=== PATIENT | female | born 1940 | race Caucasian/White ===

== ENCOUNTER 2017-02-27 12:05 | Emergency (ER) | payer MEDICARE ==
[~2017-02-27] VITALS: Ht 154.9 cm; Wt 74.8 kg
[~2017-02-27 12:05] MED LIST: ASPI81EC PO; ATOR10 PO; ATOR40TA PO; BUTASPCAF PO; CARI350 PO; CODBUTACEC PO; GLUCHON PO; HYDACE5 PO; LEVSOD125 PO; LEVSOD75 PO; LORA1 PO; LORA2 PO; MELO7.5 PO; METO50 PO; METO50ER PO; MULVITA PO; OXYACE5T PO; PARO20 PO; RANI150 PO; RISE35 PO; TELM40 PO; TELM80 PO; TELM80/12.5 PO; VERA120ER PO; VERA120ERB PO; VERA240ERB PO
[2017-02-27 13:21] LABS: BASOPHILS ABSOLUTE AUTO 0.04 K/mm3 (0.00-0.23); BASOPHILS PERCENT AUTO 1 % (0-2); EOSINOPHILS ABSOLUTE AUTO 0.01 K/mm3 (0.00-0.68); EOSINOPHILS PERCENT AUTO 0 % (0-6); Hematocrit 38.8 % (33.0-51.0); Hemoglobin 12.6 g/dL (11.5-16.0); IMMATURE GRAN ABSOLUTE AUTO 0.01 K/mm3 (0.00-0.10); IMMATURE GRAN PERCENT AUTO 0 % (0-1); LYMPHOCYTES ABSOLUTE AUTO 0.98 K/mm3 (0.84-5.20); LYMPHOCYTES PERCENT AUTO 18 % (21-46); MONOCYTES ABSOLUTE AUTO 0.48 K/mm3 (0.16-1.47); MONOCYTES PERCENT AUTO 9 % (4-13); Mean Corpuscular HGB 30.5 pg (26.0-34.0); Mean Corpuscular HGB Conc 32.5 g/dL (31.5-36.5); Mean Corpuscular Volume 94 fL (80-100); Mean Platelet Volume 9.3 fL (9.1-12.4); NEUTROPHILS ABSOLUTE AUTO 3.86 K/mm3 (1.96-9.15); NEUTROPHILS PERCENT AUTO 72 % (41-73); Platelet Count 238 K/mm3 (150-400); RDW Coefficient Variation 13.7 % (11.7-14.2); RDW Standard Deviation 47.2 fL (35.1-46.3); Red Blood Cell Count 4.13 M/mm3 (3.80-5.20); White Blood Cell Count 5.38 K/mm3 (4.00-11.30)
[2017-02-27 13:47] LABS: Alanine Aminotransfer (ALT/SGP 18 U/L (12-78); Albumin, Blood 3.5 g/dL (3.4-5.0); Albumin/Globulin Ratio 1.1 (0.8-1.8); Alk Phos 99 U/L (50-136); Anion Gap 9 mmol/L (6-16); Aspartate Aminotrans (AST/SGOT 21 U/L (12-37); Bilirubin, Total 0.3 mg/dL (0.1-1.0); Blood Urea Nitrogen 11 mg/dL (8-24); Bun/Creatinine Ratio 11.6 (12.0-20.0); CO2, Blood 26 mmol/L (21-32); Calcium, Blood 7.9 mg/dL (8.5-10.1); Chloride, Blood 97 mmol/L (98-108); Creatinine, Blood 0.95 mg/dL (0.40-1.00); Globulin, Blood 3.1 g/dL (2.2-4.0); Glomerular Filtration Rate >60 (60-); Glucose, Blood 104 mg/dL (70-99); Potassium, Blood 3.5 mmol/L (3.5-5.5); Sodium, Blood 132 mmol/L (136-145); Total Protein, Blood 6.6 g/dL (6.4-8.2); Troponin I <0.015 ng/mL (0.000-0.040)
[2017-02-27] MEDS ORDERED: PARO20 PO (14:22)
[2017-02-27] MEDS ORDERED: PREG50 PO (14:22)
[2017-02-27 15:45] LABS: Influenza A Positive (NEGATIVE); Influenza B Negative (NEGATIVE)
[2017-02-27] MEDS ORDERED: Tamiflu75 MG PO (15:59)
== END 2017-02-27 16:09 | disposition home or self-care (01) ==
LOC: ER 12:05
PROVIDERS: Internal Medicine; Physician Assistant
DX: J10.1 Influenza due to other identified influenza virus with other respiratory manifestations (principal); I10 Essential (primary) hypertension; J44.9 Chronic obstructive pulmonary disease, unspecified; R41.0 Disorientation, unspecified; R47.01 Aphasia; Z88.1 Allergy status to other antibiotic agents; Z88.0 Allergy status to penicillin; Z88.8 Allergy status to other drugs, medicaments and biological substances; Z79.899 Other long term (current) drug therapy; Z87.891 Personal history of nicotine dependence
CPT/HCPCS: 36415; 71020; 80053; 81000; 84484; 85025; 87804; 93005; 93010; 96360; 99284; J7030

== ENCOUNTER → 2018-06-01 | Outpatient (CLI) | payer MEDICARE ==
[~2018-06-01] MED LIST changes: +PREG50 PO; +Tamiflu75 MG PO
== END | disposition home or self-care (01) ==
LOC: PLD 09:03 → LAB SHORT 09:03
DX: I87.8 Other specified disorders of veins (principal)
CPT/HCPCS: 88305

== ENCOUNTER → 2018-06-30 | Outpatient (CLI) | payer MEDICARE | LOC: PLD 08:56 → LAB SHORT 08:56 | DX: D48.5 Neoplasm of uncertain behavior of skin (principal) | CPT/HCPCS: 88304 ==

== ENCOUNTER 2018-09-08 07:09 | Day surgery (SDC) | payer MEDICARE ==
[~2018-09-08] VITALS: Ht 158 cm; Wt 72.1 kg
[~2018-09-08 07:09] MED LIST changes: +L-Lysine500 M1 PO; +Zantac150 MG PO
--- NOTE | 2018-09-08 08:27 | NUR ---
Ambulatory in Day Surgery History, Chart, Medications and Allergies reviewed before start of procedure. Lungs clear T/O to Auscultation. Patient confirms NPO status and agrees with scheduled surgery. Pre-Op teaching done. Pt verbalizes understanding.
--- NOTE | 2018-09-08 09:22 | NUR ---
09/08/18 0922 Tavares Ruiz NO ANTIBIOTICS ORDERED AND THIS WAS CONFIRMED WITH DR BAUTISTA.
--- NOTE | 2018-09-08 11:02 | NUR ---
PT CO HEADACHE WHICH IS PRODUCING NAUSEA. STATES SHE SUFFERS FROM MIGRAINES WITH NAUSEA AND THIS FEELS THE SAME. WILL CONTINUE CLOSE MONITORING WHILE IN STEP DOWN UNIT. PT AWAKE, CONVERSING WITH STAFF.
--- NOTE | 2018-09-08 11:23 | NUR ---
PT SIPPING ON WATER, EATING CRACKERS AT THIS TIME. RATES PAIN IN BACK AT INCISION SITE 09/07. WILL MEDICATE WITH 2 NORCO PER PATIENT REQUEST. STATES SHE TAKES FIORNAL FOR MIGRAINES - INSTRUCTED PT NOT TO TAKER HER FIORNAL AFTER NORCO RELATED TO POSSIBLE INTERACTION/OVERSEDATION. PT AGREES TO THIS.
--- NOTE | 2018-09-08 12:02 | NUR ---
SUMMARY: PT STATES PAIN LEVEL BETTER AFTER MEDICATION ADMINISTERED. ABLE TO DRESS SELF WITH ASSIST, AMBULATE TO BATHROOM USING CANE AND SBA WITHOUT DIFFICULTY. REVIEWED DISCHARGE INSTRUCTIONS WITH PATIENT AND SO, BOTH OF WHOM VERBALIZE UNDERSTANDING OF ALL INSTRUCTIONS GIVEN. PT DENIED FURTHER NAUSEA - ABLE TO TOLERATE CRACKERS AND PAIN PILLS WITHOUT DIFFICULTY.
--- NOTE | 2018-09-08 12:05 | NUR ---
IV DC TIP INTACT PRIOR TO DC. DC HOME AT 1200 VIA WC WITH SO TO DRIVE HER.
== END 2018-09-08 22:55 | disposition home or self-care (01) ==
LOC: ORSCMMR 07:09 → ORD 09:00 → ORSCMMR 09:00
PROVIDERS: Surgery
PROC: 0JB70ZZ Excision of Back Subcutaneous Tissue and Fascia, Open Approach (ICD-10-PCS; principal; 2018-09-08 09:00)
DX: D17.1 Benign lipomatous neoplasm of skin and subcutaneous tissue of trunk (principal); I10 Essential (primary) hypertension; Z87.891 Personal history of nicotine dependence; Z79.899 Other long term (current) drug therapy
CPT/HCPCS: 88304; A9270-GY; J0330; J2250; J2704; J3010; J7120

== ENCOUNTER 2020-01-08 09:41 | Day surgery (SDC) | payer MEDICARE ==
[~2020-01-08] VITALS: Ht 157.5 cm; Wt 68.9 kg
[~2020-01-08 09:41] MED LIST changes: +BUTALBITAL COM1 EACH; +CYAN1000I
--- NOTE | 2020-01-08 10:25 | NUR ---
01/08/20 Raymundo5 Yasmin Langford 1 TRY RIGHT HAND BLEW
== END 2020-01-08 23:59 | disposition home or self-care (01) ==
LOC: ORSCSDS 09:41
PROVIDERS: Student in an Organized Health Care Education/Training Program
PROC: 0DB48ZX Excision of Esophagogastric Junction, Via Natural or Artificial Opening Endoscopic, Diagnostic (ICD-10-PCS; principal; 2020-01-08 11:15)
PROC: 0DB68ZX Excision of Stomach, Via Natural or Artificial Opening Endoscopic, Diagnostic (ICD-10-PCS; principal; 2020-01-08 11:15)
DX: D51.0 Vitamin B12 deficiency anemia due to intrinsic factor deficiency (principal); K31.7 Polyp of stomach and duodenum; K29.70 Gastritis, unspecified, without bleeding; E03.9 Hypothyroidism, unspecified; I10 Essential (primary) hypertension; F32.9 Major depressive disorder, single episode, unspecified; K21.9 Gastro-esophageal reflux disease without esophagitis; E78.5 Hyperlipidemia, unspecified; J44.9 Chronic obstructive pulmonary disease, unspecified; Z87.891 Personal history of nicotine dependence; Z79.899 Other long term (current) drug therapy
CPT/HCPCS: J2704; J7120

== ENCOUNTER 2020-06-03 09:35 | Observation (INO) | payer MEDICARE ==
[~2020-06-03] VITALS: Ht 154.9 cm; Wt 66.8 kg
[~2020-06-03 09:35] MED LIST changes: -BUTALBITAL COM1 EACH; -CYAN1000I; -L-Lysine500 M1 PO; -PREG50 PO; -TELM80 PO
[2020-06-03 12:38] LABS: BASOPHILS ABSOLUTE AUTO 0.08 K/mm3 (0.00-0.23); BASOPHILS PERCENT AUTO 1 % (0-2); EOSINOPHILS ABSOLUTE AUTO 0.34 K/mm3 (0.00-0.68); EOSINOPHILS PERCENT AUTO 4 % (0-6); Hematocrit 38.5 % (33.0-51.0); Hemoglobin 12.7 g/dL (11.5-16.0); IMMATURE GRAN ABSOLUTE AUTO 0.03 K/mm3 (0.00-0.10); IMMATURE GRAN PERCENT AUTO 0 % (0-1); LYMPHOCYTES ABSOLUTE AUTO 1.81 K/mm3 (0.84-5.20); LYMPHOCYTES PERCENT AUTO 19 % (21-46); MONOCYTES ABSOLUTE AUTO 0.96 K/mm3 (0.16-1.47); MONOCYTES PERCENT AUTO 10 % (4-13); Mean Corpuscular HGB 30.5 pg (26.0-34.0); Mean Corpuscular Volume 92 fL (80-100); Mean Platelet Volume 9.3 fL (9.1-12.4); NEUTROPHILS ABSOLUTE AUTO 6.29 K/mm3 (1.96-9.15); NEUTROPHILS PERCENT AUTO 66 % (41-73); Platelet Count 298 K/mm3 (150-400); RDW Standard Deviation 43.8 fL (35.1-46.3); Red Blood Cell Count 4.17 M/mm3 (3.80-5.20); White Blood Cell Count 9.51 K/mm3 (4.00-11.30)
[2020-06-03 12:59] LABS: Alanine Aminotransfer (ALT/SGP 23 U/L (12-78); Albumin, Blood 3.1 g/dL (3.4-5.0); Albumin/Globulin Ratio 0.8 (0.8-1.8); Alk Phos 118 U/L (50-136); Anion Gap 4 mmol/L (6-16); Aspartate Aminotrans (AST/SGOT 20 U/L (12-37); Bilirubin, Total 0.4 mg/dL (0.1-1.0); Blood Urea Nitrogen 7 mg/dL (8-24); Bun/Creatinine Ratio 10.8 (12.0-20.0); CO2, Blood 28 mmol/L (21-32); Calcium, Blood 8.6 mg/dL (8.5-10.1); Chloride, Blood 99 mmol/L (98-108); Creatinine, Blood 0.65 mg/dL (0.40-1.00); Globulin, Blood 3.8 g/dL (2.2-4.0); Glomerular Filtration Rate >60 (60-); Glucose, Blood 111 mg/dL (70-99); Potassium, Blood 3.8 mmol/L (3.5-5.5); Sodium, Blood 131 mmol/L (136-145); Total Protein, Blood 6.9 g/dL (6.4-8.2)
[2020-06-03] MEDS ORDERED: ASCOMP WITH CO1 EACH PO (13:28)
[2020-06-03] MEDS ORDERED: LORA2 PO (13:29)
[2020-06-03] MEDS ORDERED: ATOR40TA PO (13:30)
[2020-06-03] MEDS ORDERED: PREG50 PO (13:30)
[2020-06-03] MEDS ORDERED: Cimetidine400 MG PO (13:33)
[2020-06-03] MEDS ORDERED: CHLORZOXAZONE750 MG PO (13:33)
[2020-06-03] MEDS ORDERED: EUTHYROX88 MCG PO (13:34)
[2020-06-03] MEDS ORDERED: PARO20 PO (13:35)
[2020-06-03] MEDS ORDERED: METO50ER PO (13:35)
[2020-06-03] MEDS ORDERED: TELMISARTAN-HC1 EAC4 PO (13:35)
[2020-06-03] MEDS ORDERED: ESTRADIOL42.5 GM VAG (13:38)
[2020-06-03] MEDS ORDERED: CYAN1000I IM (14:52)
[2020-06-03] MEDS ORDERED: L-Lysine500 M1 PO (14:52)
[2020-06-03] MEDS ORDERED: PROM25 PO (14:53)
--- NOTE | 2020-06-03 17:51 | NUR ---
SHIFT SUMMARY/ADMIT SUMMARY PATIENT ADMITTED TO UNIT FROM ER ABOUT 1700. ALERT AND ORIENTED. RIGHT FEMUR FRACTURE FROM A GROUND LEVEL FALL AT HOME. PATIENT REPORTS SEVERE PAIN BUT SHOWS GOOD MOVEMENT AND WARMTH TO BILAT LE. REPORTS BASELINE NUMBNESS TO BOTTOMS OF FEET AND LEFT LEG DUE TO NEUROPATHY. MEDICATED PATIENT FOR MIGRAINE AND HIP PAIN PER EMAR. PATIENT NON-SURGICAL PER ORTHO. TOLERATING REGULAR DIET AND LIQUIDS. PRADO IN PLACE AND PATENT. 2 MM HEAD LACERATION TO BACK OF SKULL FORM FALL. PHOTOS DOCUMENTED IN CHART.
--- NOTE | 2020-06-04 03:58 | NUR ---
SHIFT SUMMARY: NONSURGICAL RIGHT HIP FX PATIENT IS ALERT AND ORIENTED X4 WHILE AWAKE. VS ARE WNL AND IS ON RA. PAIN IS MANAGED WITH PO NARCOTICS. RIGHT HIP IS NON-WEIGHT BEARING BUT IS ABLE TO STAND AND PIVIOT ON LEFT LEG WITH FWW AND GAIT BELT. SHE IS TOLERATING PO INTAKE. PRADO IS IN PLACE AND PATENT. YELLOW URINE IS FLOWING INTO PRADO BAG. 2MM HEAD LACERATION TO BACK OF SKULL FROM FALL. NO BLEEDING AT THIS TIME. RIGHT HIP IS SWOLLEN AND SOME BRUISING. CALLS APPROPRIATELY. CALL LIGHT WITHIN REACH. THE PLAN IS TO POSSIBLY DISCHARGE HOME LATER TODAY.
--- NOTE | 2020-06-04 18:18 | NUR ---
SHIFT SUMMARY PT ALERT AND ORIENTED THROUGHOUT SHIFT. 1 PERSON SBA WITH WALKER TO TRANSFER TO CHAIR. EVE LOGAN'Summer THIS SHIFT. VOIDING WELL. MEDICATE FOR PAIN PER EMAR. TOLERATING REGULAR DIET AND LIQUIDS. NON-SURGICAL FX OF RIGHT HIP. PLAN TO DISCHARGE HOME WITH HOME HEALTH PT/OT. PT RESTING IN BED AT THIS TIME.
--- NOTE | 2020-06-05 03:23 | NUR ---
SHIFT SUMMARY: RIGHT HIP FX - NONSURGICAL PATIENT IS ALERT AND ORIENTED X4 WHILE AWAKE. PATIENT HAS BEEN ASLEEP MAJORITY OF THE SHIFT BUT IS EASILY AROUSABLE. VS ARE WNL AND IS ON RA. PAIN IS MANAGED WITH 1 PERCOCET. SHE IS A SBA WITH FWW AND GAIT BELT TO BEDSIDE COMMODE. SHE HAS FULL SENSATIONS IN ALL EXTREMITIES. SHE IS ABLE TO WIGGLE FINGERS AND TOES. SHE IS VOIDING AND TOLERATING HER PO INTAKE. CALL LIGHT IS WITHIN REACH. CALLS APPROPRIATELY. LACERATION ON THE BACK OF HER HEAD IS DRY AND NO DRAINAGE. THE PLAN IS FOR HER TO BE DISCHARGED HOME TODAY WITH HOME HEALTH AND PT VISITS.
--- NOTE | 2020-06-05 07:10 | NUR ---
pt req toast and her migraine medication stated she woke up and her neck hurts along with cont h/a no toast up here put in a order
--- NOTE | 2020-06-05 08:40 | NUR ---
dr santa by to see pt ok to discharge home today after physical therapy with h/h
[2020-06-05] MEDS ORDERED: Acetaminophen325 M1 PO (10:04)
[2020-06-05] MEDS ORDERED: Percocet 5-3251 EACH PO (10:04)
--- NOTE | 2020-06-05 10:53 | NUR ---
ot working with pt she had me look at her head lac pt has [address] still in [address] no current bleeding noted
--- NOTE | 2020-06-05 11:29 | NUR ---
oob to bathroom with fww had a bm back to recliner physical therapy by to see pt
--- NOTE | 2020-06-05 12:15 | NUR ---
discharge instructions reviewed with pt verbalized rx awaiting ride po percocet given req her migraine med pharmacy called awaiting ride
== END 2020-06-05 13:00 | disposition home or self-care (01) ==
LOC: ER 09:35 → SURS 09:36 → ER 13:58 → SURS 13:58
PROVIDERS: Physician Assistant; ADMIT Internal Medicine
DX: M97.01XA Periprosthetic fracture around internal prosthetic right hip joint, initial encounter (principal); S00.93XA Contusion of unspecified part of head, initial encounter; I10 Essential (primary) hypertension; J44.9 Chronic obstructive pulmonary disease, unspecified; E78.5 Hyperlipidemia, unspecified; E03.9 Hypothyroidism, unspecified; F41.9 Anxiety disorder, unspecified; G43.909 Migraine, unspecified, not intractable, without status migrainosus; W01.190A Fall on same level from slipping, tripping and stumbling with subsequent striking against furniture, initial encounter; Z96.643 Presence of artificial hip joint, bilateral; Z87.891 Personal history of nicotine dependence; Z66 Do not resuscitate
CPT/HCPCS: 36415; 51702; 70450; 73502; 80053; 85025; 94760; 96372; 96374-59; 97110; 97110-CO; 97116; 97162; 97165; 97530; 97530-CO; 97535; 97535-CO; 99285-25; A9270; G0378; J1650; J2405; J3010

== ENCOUNTER → 2020-07-16 | Outpatient (CLI) | payer MEDICARE ==
[~2020-07-16] MED LIST changes: +ASCOMP WITH CO1 EACH PO; +Acetaminophen325 M1 PO; +CHLORZOXAZONE750 MG PO; +CYAN1000I IM; +Cimetidine400 MG PO; +ESTRADIOL42.5 GM VAG; +EUTHYROX88 MCG PO; +L-Lysine500 M1 PO; +PREG50 PO; +PROM25 PO; +Percocet 5-3251 EACH PO; +TELMISARTAN-HC1 EAC4 PO
[2020-07-16 16:06] LABS: Source, Urine Clean Catch
[2020-07-16 19:34] LABS: Appearance, Urine Clear (Clear); Bilirubin, Urine Neg (Neg); Blood, Urine 2+ (Neg); Color, Urine Yellow (P-Yellow); Glucose Qualitative, Urine Neg (Neg); Ketones, Urine 1+ (Neg); Leukocyte Esterase, Urine 1+ (Neg); Nitrite, Urine Pos (Neg); Protein, Urine 1+ (Neg); Urobilinogen, Urine NORM (Normal)
[2020-07-16 20:04] LABS: Bacteria Many /hpf; Red Blood Cells, Urine 0-2 /hpf (0-2); Squamous Epithelial Cells Mod /hpf (Few); White Blood Cells, Urine 0-2 /hpf (0-5)
== END | disposition home or self-care (01) ==
LOC: LAB 16:03 → LAB SHORT 16:03
PROVIDERS: Obstetrics & Gynecology
DX: R30.9 Painful micturition, unspecified (principal)
CPT/HCPCS: 81001; 87086

== ENCOUNTER 2021-08-06 15:42 | Emergency (ER) | payer MEDICARE ==
[~2021-08-06] VITALS: Ht 152.4 cm; Wt 68.0 kg
[2021-08-06 17:04] LABS: Bun/Creatinine Ratio 15.7 (12.0-20.0); Calcium, Blood 8.5 mg/dL (8.5-10.1); Creatinine, Blood 0.76 mg/dL (0.40-1.00); Potassium, Blood 3.8 mmol/L (3.5-5.5)
== END 2021-08-06 18:59 | disposition home or self-care (01) ==
LOC: ER 15:42
PROVIDERS: Student in an Organized Health Care Education/Training Program
DX: R51.9 Headache, unspecified (principal); R42 Dizziness and giddiness; R55 Syncope and collapse; I10 Essential (primary) hypertension; E78.5 Hyperlipidemia, unspecified; J44.9 Chronic obstructive pulmonary disease, unspecified; E03.9 Hypothyroidism, unspecified; Z88.1 Allergy status to other antibiotic agents; Z88.0 Allergy status to penicillin; Z88.8 Allergy status to other drugs, medicaments and biological substances; Z79.899 Other long term (current) drug therapy; Z91.81 History of falling
CPT/HCPCS: 70450; 80048; 93005; 93010; 96365; 96366; 96375; 99285-25; J0780; J1200; J3475; J7030

== ENCOUNTER 2022-01-02 06:46 | Day surgery (SDC) | payer MEDICARE ==
--- NOTE | 2022-01-02 08:55 | NUR ---
DR DUARTE HERE TO DISCUSS PROCEDURE WITH PATIENT.
--- NOTE | 2022-01-02 10:30 | NUR ---
DR DUARTE IN TO DISCUSS PROCEDURE RESULTS WITH PATIENT AND .
[2022-01-02] MEDS ORDERED: Aspir 8181 MG PO (10:35)
--- NOTE | 2022-01-02 12:39 | NUR ---
TR BAND HAS BEEN FULLY DEFLATED AND SITE REMAINS STABLE
--- NOTE | 2022-01-02 13:15 | NUR ---
PATIENT AND VERBALIZED UNDERSTANDING OF DISCHARGE INSTRUCTIONS AND PRECAUTIONS. DR DUARTE CANCELED 81MG ASA ORDER PATIENT IS TAKING 325 MG ASA IN A COMBINATION DRUG. PATIENT HAS BEEN UP TO THE RESROOM WITH STANDBY ASSIST X 3 DURING RECOVERY. IV SITE DCED WITH CATHETER INTACT. TR BAND REMOVED AND CLOTH DOT DRESSING PLACED. WRIST BOARD IN PLACE. SITE STABLE . NO HEMATOMA, NO BLEEDING. NO FURTHER QUESTIONS. PATIENT TRANSFERRED TO WAITING CAR VIA WHEEL CHAIR. DRIVING.
== END 2022-01-02 13:55 | disposition home or self-care (01) ==
LOC: MHTC 06:46
DX: R07.9 Chest pain, unspecified (principal); I25.10 Atherosclerotic heart disease of native coronary artery without angina pectoris; R06.09 Other forms of dyspnea; R00.2 Palpitations; R94.39 Abnormal result of other cardiovascular function study; I10 Essential (primary) hypertension; E78.5 Hyperlipidemia, unspecified; K21.9 Gastro-esophageal reflux disease without esophagitis; E03.9 Hypothyroidism, unspecified; J44.9 Chronic obstructive pulmonary disease, unspecified; Z87.891 Personal history of nicotine dependence; Z88.1 Allergy status to other antibiotic agents; Z88.0 Allergy status to penicillin; Z82.49 Family history of ischemic heart disease and other diseases of the circulatory system
CPT/HCPCS: 76937; 93454; 99152; A9270; C1769; C1887; C1894; J1644; J2250; J3010; J7030; J7040; Q9967

== ENCOUNTER → 2022-07-23 | Outpatient (CLI) | payer MEDICARE ==
[~2022-07-23] MED LIST changes: +Aspir 8181 MG PO
[2022-07-23 13:30] LABS: Source, Urine Clean Catch
[2022-07-23 18:09] LABS: Bacteria Rare /hpf; Squamous Epithelial Cells Rare /hpf (Few); White Blood Cells, Urine 0-2 /hpf (0-5)
== END | disposition home or self-care (01) ==
LOC: LAB SHORT 10:55 → LAB 10:55
PROVIDERS: Internal Medicine
DX: N39.0 Urinary tract infection, site not specified (principal)
CPT/HCPCS: 81015

== ENCOUNTER 2023-08-17 13:06 | Observation (INO) | payer MEDICARE ==
[~2023-08-17] VITALS: Ht 154.9 cm; Wt 57.3 kg
[2023-08-17 13:32] LABS: BASOPHILS ABSOLUTE AUTO 0.08 K/mm3 (0.00-0.23); BASOPHILS PERCENT AUTO 1 % (0-2); EOSINOPHILS ABSOLUTE AUTO 0.09 K/mm3 (0.00-0.68); EOSINOPHILS PERCENT AUTO 1 % (0-6); Hematocrit 38.1 % (33.0-51.0); Hemoglobin 12.9 g/dL (11.5-16.0); IMMATURE GRAN ABSOLUTE AUTO 0.02 K/mm3 (0.00-0.10); IMMATURE GRAN PERCENT AUTO 0 % (0-1); LYMPHOCYTES ABSOLUTE AUTO 1.49 K/mm3 (0.84-5.20); LYMPHOCYTES PERCENT AUTO 19 % (21-46); MONOCYTES PERCENT AUTO 9 % (4-13); Mean Corpuscular HGB 30.3 pg (26.0-34.0); Mean Corpuscular HGB Conc 33.9 g/dL (31.5-36.5); Mean Corpuscular Volume 89 fL (80-100); Mean Platelet Volume 8.5 fL (9.1-12.4); NEUTROPHILS ABSOLUTE AUTO 5.48 K/mm3 (1.96-9.15); NEUTROPHILS PERCENT AUTO 70 % (41-73); Platelet Count 282 K/mm3 (150-400); RDW Coefficient Variation 13.1 % (11.7-14.2); Red Blood Cell Count 4.26 M/mm3 (3.80-5.20); White Blood Cell Count 7.86 K/mm3 (4.00-11.30)
[2023-08-17 13:51] LABS: Albumin, Blood 3.7 g/dL (3.4-5.0); Albumin/Globulin Ratio 1.2 (0.8-1.8); Bilirubin, Total 0.5 mg/dL (0.1-1.0); Calcium, Blood 8.7 mg/dL (8.5-10.1); Creatinine, Blood 0.63 mg/dL (0.40-1.00); Globulin, Blood 3.1 g/dL (2.2-4.0); Potassium, Blood 3.5 mmol/L (3.5-5.5); Total Protein, Blood 6.8 g/dL (6.4-8.2)
[2023-08-17] MEDS ORDERED: Acetaminophen 500 MG Tab PO ONE (14:00)
[2023-08-17] MEDS ORDERED: OxyCODONE HCL 5 MG TAB PO ONE (14:10)
[2023-08-17] MEDS ORDERED: Lidocaine/Tetracaine/Epinephr 4 ML SOLN TOP ONE ×2 (14:20→15:20)
[2023-08-17] MEDS ORDERED: LEVSOD112 PO (14:39)
[2023-08-17] MEDS ORDERED: PARO10 PO (14:41)
[2023-08-17] MEDS ORDERED: CLOP75 PO (14:42)
[2023-08-17] MEDS ORDERED: PRAM.125 PO (14:43)
[2023-08-17] MEDS ORDERED: NITR.4SL SL (14:43)
[2023-08-17] MEDS ORDERED: levETIRAcetam 500 MG in NS 100 ML IV ONE (18:20)
[2023-08-17] MEDS ORDERED: FentaNYL Citrate 50 MCG/ML 2 ML Injection IV ONE (19:00)
[2023-08-17] MEDS ORDERED: Ondansetron HCl 2 MG / ML 2ML Vial IV ONE (19:00)
[2023-08-17] MEDS ORDERED: Acetaminophen 325 MG TABLET PO PRN (20:25)
[2023-08-17] MEDS ORDERED: NS 1,000 ML IV SCH (20:25)
[2023-08-17] MEDS ORDERED: Ondansetron HCl 2 MG / ML 2ML Vial IV PRN (20:25)
[2023-08-17 21:00] VITALS: BP 152/84
[2023-08-17] MEDS ORDERED: Pramipexole DI-HCL 0.125 MG Tab PO SCH (21:00)
[2023-08-17] MEDS ORDERED: Pregabalin 50 MG Capsule PO SCH (21:00)
[2023-08-17] MEDS ORDERED: Famotidine 20 MG Tab PO SCH (21:00)
[2023-08-17 21:45] VITALS: BP 164/116
[2023-08-17] MEDS ORDERED: Lidocaine 5% Ointment 35 gm TOP PRN (21:50)
[2023-08-17] MEDS ORDERED: OxyCODONE 5 mg/Acetamin 325 mg TABLET PO PRN (21:50)
[2023-08-17] MEDS ORDERED: Sennosides 8.6 MG Tab PO SCH (21:55)
[2023-08-17] MEDS ORDERED: Metoprolol Succinate 50 MG TABCR PO SCH (22:06)
[2023-08-17] MEDS ORDERED: Losartan/HCTZ 50-12.5 TAB PO SCH (22:15)
[2023-08-17 23:38] VITALS: BP 152/82
[2023-08-18] MEDS ORDERED: Acetamin/Butalbital/Caffeine Tab PO ONE (02:30)
[2023-08-18] MEDS ORDERED: Acetamin/Butalbital/Caffeine Tab PO PRN (02:30)
[2023-08-18 03:08] VITALS: BP 113/72
[2023-08-18 04:57] LABS: Hematocrit 36.7 % (33.0-51.0); Hemoglobin 12.3 g/dL (11.5-16.0); Mean Corpuscular HGB 30.1 pg (26.0-34.0); Mean Corpuscular HGB Conc 33.5 g/dL (31.5-36.5); Mean Corpuscular Volume 90 fL (80-100); Mean Platelet Volume 8.9 fL (9.1-12.4); Platelet Count 273 K/mm3 (150-400); RDW Coefficient Variation 13.2 % (11.7-14.2); RDW Standard Deviation 43.5 fL (35.1-46.3); Red Blood Cell Count 4.08 M/mm3 (3.80-5.20); White Blood Cell Count 5.72 K/mm3 (4.00-11.30)
[2023-08-18 05:33] LABS: Calcium, Blood 8.9 mg/dL (8.5-10.1); Creatinine, Blood 0.5 mg/dL (0.40-1.00); Magnesium, Blood 1.9 mg/dL (1.6-2.4); Potassium, Blood 3.5 mmol/L (3.5-5.5)
[2023-08-18] MEDS ORDERED: Levothyroxine Sodium 0.112 MG Tab PO SCH (06:00)
--- NOTE | 2023-08-18 06:07 | NUR ---
2129 Pt arrived on unit from ED via [facility] with RN in attendance. Ambulated from [facility] in hallway to bed in room 4 with 1 person assist due to unsteadiness. Pt reports able to ambulate ad kacey at baseline, endores she is significantly altered. Fall risk education provided and pt able to verbalize understanding. Oriented to room and unit per unit standards. Pt reports high level of headache pain 8-10/10, though hard to distinguish between normal migraine pain and pain related to fall. Monitor Neuro status for changes. BP slightly elevated, call to MD to restarted home meds for BP. VSS stable throughout night, BP better. Pt has required O2 2lpm via NC to maintain SpO2 >92% while asleep tonight. Pt reports she does not wear O2 at home. Call to MD to request migraine medication, New orders recieved and pt informed. Repeat Head CT obtained this AM, awaiting results. Please see full assessment for additional details. No further complaints or concerns at this time, will continue to monitor.
[2023-08-18 07:27] VITALS: BP 115/87
[2023-08-18] MEDS ORDERED: Atorvastatin 40 MG Tab PO SCH (09:00)
[2023-08-18] MEDS ORDERED: LevETIRAcetam 500 MG Tab PO SCH (09:00)
[2023-08-18] MEDS ORDERED: PARoxetine HCl 10 MG Tab PO SCH (09:00)
[2023-08-18 12:33] VITALS: BP 131/72
[2023-08-18] MEDS ORDERED: LEVE500 PO (14:07)
[2023-08-18] MEDS ORDERED: Percocet 5-3251 EACH PO (14:08)
[2023-08-18] MEDS ORDERED: SENNA LAXATIVE8.6 MG PO (14:09)
--- NOTE | 2023-08-18 15:52 | NUR ---
DISCHARGE HOME PT A&O X4. VSS. SPO2 > 92% ON RA. MONITOR SHOWING NSR. PT W/ BRUISING TO R LIP/CHEEK/FACE W/ SWELLING WELL. PT W/ CONTINUED HEADACHE & "SHARP" FACIAL PAIN WELL. PT REPORTS CHRONIC MIGRAINES PRIOR TO FALL AT HOME. PT MEDICATED FOR PAIN PER EMAR/PT REQUEST W/ LITTLE TO NO IMPROVEMENT IN PAIN. PT STEADY ON FEET THIS AM, THEN W/ CONTINUED INCREASE IN STABILITY IN STRENGTH W/ PT ABLE TO AMBULATE INTO BATHROOM W/ SBA. THERAPY TO BEDSIDE TO EVALUATE PT, RECOMMENDING PT DISCHARGE HOME W/ HOME HEALTH. MD RENTERIA & MD BERNSTEIN W/ IVY FOR PT DISCHARGE. DISCHARGE INSTRUCTIONS REVIEWED W/ PT & SENT HOME W/ PT. PIV REMOVED. PT TAKEN OUT IN WHEELCHAIR W/ BELONGINGS @ APPROX 1450.
[2023-08-18] MEDS ORDERED: Metoprolol Succinate 50 MG TABCR PO SCH (18:00)
[2023-08-18] MEDS ORDERED: Pramipexole DI-HCL 0.125 MG Tab PO SCH (21:00)
[2023-08-18] MEDS ORDERED: Losartan Potassium 50 MG Tab PO SCH (21:00)
== END 2023-08-18 15:03 | disposition home or self-care (01) ==
LOC: ER 13:06 → PCU 13:07 → ER 13:07 → PCU 13:07
PROVIDERS: Nurse Practitioner Acute Care; Physician Assistant; ADMIT Student in an Organized Health Care Education/Training Program
DX: S06.6X9A Traumatic subarachnoid hemorrhage with loss of consciousness of unspecified duration, initial encounter (principal); W19.XXXA Unspecified fall, initial encounter; J44.9 Chronic obstructive pulmonary disease, unspecified; I10 Essential (primary) hypertension; E78.5 Hyperlipidemia, unspecified; E03.9 Hypothyroidism, unspecified; E87.1 Hypo-osmolality and hyponatremia; I25.10 Atherosclerotic heart disease of native coronary artery without angina pectoris; F41.9 Anxiety disorder, unspecified; Z95.5 Presence of coronary angioplasty implant and graft; Z88.0 Allergy status to penicillin; Z88.1 Allergy status to other antibiotic agents; Z79.01 Long term (current) use of anticoagulants; Z88.8 Allergy status to other drugs, medicaments and biological substances; Z79.890 Hormone replacement therapy; Z79.899 Other long term (current) drug therapy
CPT/HCPCS: 12011; 36415; 70450; 70486; 71045; 80048; 80053; 83735; 83930; 83935; 84300; 84484; 85025; 85027; 93005; 93010; 93246; 94762; 96374-59; 96375-59; 97110; 97162; 99285-25; A9270; G0378; J1953; J2405; J3010; J7030

== ENCOUNTER 2023-09-20 12:56 | Observation (INO) | payer MEDICARE ==
[2023-09-20] VITALS (14 sets, daily range): BP systolic 93–132; BP diastolic 52–90
[~2023-09-20] VITALS: Ht 154.9 cm; Wt 57.7 kg
[~2023-09-20 12:56] MED LIST changes: +CLOP75 PO; +LEVE500 PO; +LEVSOD112 PO; +NITR.4SL SL; +PARO10 PO; +PRAM.125 PO; +SENNA LAXATIVE8.6 MG PO
[2023-09-20] MEDS ORDERED: HYDROmorphone HCl/Pf 1MG SYR IV ONE ×2 (14:30→16:40)
[2023-09-20] MEDS ORDERED: Propofol 10mg/ml 20 ml Vial (Procedural) IV SCH (14:30)
[2023-09-20] MEDS ORDERED: NS 1,000 ML IV SCH (14:30)
[2023-09-20] MEDS ORDERED: Ondansetron HCl 2 MG / ML 2ML Vial ONE (15:13)
[2023-09-20] MEDS ORDERED: Ondansetron HCl 2 MG / ML 2ML Vial IV ONE (15:25)
[2023-09-20] MEDS ORDERED: propofoL 20 ML IV ONE (17:26)
[2023-09-20] MEDS ORDERED: FentaNYL Citrate 50 MCG/ML 2 ML Injection ONE (17:26)
[2023-09-20] MEDS ORDERED: Rocuronium Bromide 10 MG/ML 5ML Injection IV ONE (17:26)
[2023-09-20] MEDS ORDERED: SuccINYLCHOLINE Chloride 20 MG/ML 10ML Injection ONE (17:28)
--- NOTE | 2023-09-20 17:57 | NUR ---
09/20/23 1757 Amparo Child CLOSED REDUCTION, NO ABX ORDERED, NO WOUND CLASS
[2023-09-20] MEDS ORDERED: TraMADol HCl 50 MG Tab PO PRN (18:50)
--- NOTE | 2023-09-20 19:15 | NUR ---
ARRIVAL NOTE PT ARRIVED TO ROOM FROM PACU. TRANSFERED W/ SLIDE SHEET TO BED FROM [facility]. VSS. CONT BIOX ON. PT A/O X4. IMMOBILIZER ON R LEG, CAP REFILL IN R TOES 2 SECS, PT ABLE TO WIGGLE TOES. PT DENIES PAIN AND N/V. INSTRUCTED MS ACCESS DATABASE DEVELOPER LIGHT USE.
[2023-09-20] MEDS ORDERED: Albuterol 2.5 MG/3 ML VIAL INH PRN (20:15)
[2023-09-20 20:24] LABS: BASOPHILS ABSOLUTE AUTO 0.04 K/mm3 (0.00-0.23); BASOPHILS PERCENT AUTO 0 % (0-2); EOSINOPHILS ABSOLUTE AUTO 0.07 K/mm3 (0.00-0.68); EOSINOPHILS PERCENT AUTO 1 % (0-6); Hematocrit 37.7 % (33.0-51.0); Hemoglobin 12.5 g/dL (11.5-16.0); IMMATURE GRAN ABSOLUTE AUTO 0.04 K/mm3 (0.00-0.10); IMMATURE GRAN PERCENT AUTO 0 % (0-1); LYMPHOCYTES ABSOLUTE AUTO 1.11 K/mm3 (0.84-5.20); LYMPHOCYTES PERCENT AUTO 9 % (21-46); MONOCYTES ABSOLUTE AUTO 0.77 K/mm3 (0.16-1.47); MONOCYTES PERCENT AUTO 6 % (4-13); Mean Corpuscular HGB 30.1 pg (26.0-34.0); Mean Corpuscular HGB Conc 33.2 g/dL (31.5-36.5); Mean Corpuscular Volume 91 fL (80-100); Mean Platelet Volume 8.4 fL (9.1-12.4); NEUTROPHILS ABSOLUTE AUTO 10.25 K/mm3 (1.96-9.15); NEUTROPHILS PERCENT AUTO 84 % (41-73); Platelet Count 231 K/mm3 (150-400); RDW Coefficient Variation 13.2 % (11.7-14.2); RDW Standard Deviation 44.3 fL (35.1-46.3); Red Blood Cell Count 4.15 M/mm3 (3.80-5.20); White Blood Cell Count 12.28 K/mm3 (4.00-11.30)
[2023-09-20 20:41] LABS: Albumin, Blood 3.4 g/dL (3.4-5.0); Albumin/Globulin Ratio 1.2 (0.8-1.8); Bilirubin, Total 0.3 mg/dL (0.1-1.0); Bun/Creatinine Ratio 8.2 (12.0-20.0); Calcium, Blood 8.5 mg/dL (8.5-10.1); Creatinine, Blood 0.61 mg/dL (0.40-1.00); Globulin, Blood 2.9 g/dL (2.2-4.0); Potassium, Blood 3.7 mmol/L (3.5-5.5); Total Protein, Blood 6.3 g/dL (6.4-8.2)
[2023-09-20] MEDS ORDERED: LORZONE375 MG PO (21:19)
[2023-09-20] MEDS ORDERED: Ondansetron HCl 2 MG / ML 2ML Vial IV PRN (22:50)
[2023-09-20] MEDS ORDERED: Ipratropium/Albuterol SulF 2.5-0.5MG/3 ML Amp INH PRN (22:50)
[2023-09-20] MEDS ORDERED: FentaNYL Citrate 50 MCG/ML 2 ML Injection IV PRN (22:55)
[2023-09-20] MEDS ORDERED: Furosemide 10 MG/ML 4ML Vial IV SCH (23:00)
[2023-09-20] MEDS ORDERED: Enoxaparin 40 MG/0.4 ML SYR SC SCH (23:00)
[2023-09-20] MEDS ORDERED: Azithromycin 500 MG in NS 250 ML IV SCH (23:00)
[2023-09-20] MEDS ORDERED: Acetamin/Butalbital/Caffeine Tab PO PRN (23:05)
[2023-09-20] MEDS ORDERED: Promethazine HCl 25 MG Tab PO PRN (23:05)
[2023-09-21 02:39] LABS: Source, Urine Clean Catch
[2023-09-21 02:43] LABS: Bilirubin, Urine Neg (Neg); Blood, Urine 2+ (Neg); Glucose Qualitative, Urine Neg (Neg); Ketones, Urine Neg (Neg); Leukocyte Esterase, Urine Neg (Neg); Nitrite, Urine Neg (Neg); Protein, Urine Neg (Neg); Specific Gravity, Urine 1.005 (1.003-1.022); Urobilinogen, Urine NORM (Normal); pH, Urine 6.5 (5.0-8.0)
[2023-09-21 02:55] LABS: Appearance, Urine Clear (Clear); Bacteria Not Seen /hpf; Color, Urine Pale Yellow (P-Yellow); Red Blood Cells, Urine 0-2 /hpf (0-2); Squamous Epithelial Cells Rare /hpf (Few); White Blood Cells, Urine Not Seen /hpf (0-5)
[2023-09-21 03:02] LABS: Influenza A, PCR NEGATIVE (NEGATIVE); Influenza B, PCR NEGATIVE (NEGATIVE); Resp Syncytial Virus, PCR NEGATIVE (NEGATIVE); SARS-Cov-2 (COVID-19) PCR, MMC NEGATIVE (NEGATIVE)
[2023-09-21 04:05] VITALS: BP 107/55
--- NOTE | 2023-09-21 04:42 | NUR ---
SHIFT SUMMARY PT IS A/OX4, HAS NOT AMBULATED SINCE SURGERY. PRADO IN PLACE DRAINING LARGE AMOUNTS OF CLEAR URINE, LASIX GIVEN PER EMAR THIS SHIFT. IMMOBILIZER IN PLACE ON R LEG, TOES WARM TO TOUCH, PEDAL PULSE PALPABLE, PT ABLE TO WIGGLE TOES. O2 SATS >95% ON 2LNC. PT AWAKE ALL NIGHT. TELE ON, NO ACUTE CARDIAC EVENTS REPORTED BY NURSING HOME AIDE THIS SHIFT. VSS. PT MEDICATED FOR PAIN THIS SHIFT W/ TOLERABLE RESULTS. PT USING CALL LIGHT APPROPRIATELY.
[2023-09-21] MEDS ORDERED: Pregabalin 50 MG Capsule PO SCH (05:00)
[2023-09-21] MEDS ORDERED: Levothyroxine Sodium 0.112 MG Tab PO SCH (05:00)
[2023-09-21 05:13] LABS: BASOPHILS ABSOLUTE AUTO 0.06 K/mm3 (0.00-0.23); BASOPHILS PERCENT AUTO 1 % (0-2); EOSINOPHILS ABSOLUTE AUTO 0.17 K/mm3 (0.00-0.68); EOSINOPHILS PERCENT AUTO 2 % (0-6); Hematocrit 40.6 % (33.0-51.0); Hemoglobin 13.5 g/dL (11.5-16.0); IMMATURE GRAN ABSOLUTE AUTO 0.02 K/mm3 (0.00-0.10); IMMATURE GRAN PERCENT AUTO 0 % (0-1); LYMPHOCYTES ABSOLUTE AUTO 1.98 K/mm3 (0.84-5.20); LYMPHOCYTES PERCENT AUTO 26 % (21-46); MONOCYTES ABSOLUTE AUTO 0.76 K/mm3 (0.16-1.47); MONOCYTES PERCENT AUTO 10 % (4-13); Mean Corpuscular HGB 30.4 pg (26.0-34.0); Mean Corpuscular HGB Conc 33.3 g/dL (31.5-36.5); Mean Corpuscular Volume 91 fL (80-100); NEUTROPHILS ABSOLUTE AUTO 4.64 K/mm3 (1.96-9.15); NEUTROPHILS PERCENT AUTO 61 % (41-73); Platelet Count 255 K/mm3 (150-400); RDW Coefficient Variation 13.1 % (11.7-14.2); RDW Standard Deviation 43.7 fL (35.1-46.3); Red Blood Cell Count 4.44 M/mm3 (3.80-5.20); White Blood Cell Count 7.63 K/mm3 (4.00-11.30)
[2023-09-21 06:03] LABS: Albumin, Blood 3.7 g/dL (3.4-5.0); Albumin/Globulin Ratio 1.1 (0.8-1.8); Bilirubin, Total 0.4 mg/dL (0.1-1.0); Bun/Creatinine Ratio 10.9 (12.0-20.0); Calcium, Blood 8.9 mg/dL (8.5-10.1); Creatinine, Blood 0.64 mg/dL (0.40-1.00); Globulin, Blood 3.3 g/dL (2.2-4.0); Potassium, Blood 3.5 mmol/L (3.5-5.5)
[2023-09-21] MEDS ORDERED: Nitroglycerin 0.4 MG SUBL SL PRN (06:05)
[2023-09-21 07:09] VITALS: BP 121/78
[2023-09-21] MEDS ORDERED: HydroCHLOROthiazide 25 mg Tab PO SCH (09:00)
[2023-09-21] MEDS ORDERED: PARoxetine HCl 10 MG Tab PO SCH (09:00)
[2023-09-21] MEDS ORDERED: Losartan Potassium 50 MG Tab PO SCH (09:00)
[2023-09-21] MEDS ORDERED: Famotidine 20 MG Tab PO SCH (09:00)
[2023-09-21] MEDS ORDERED: Atorvastatin 40 MG Tab PO SCH (09:00)
[2023-09-21] MEDS ORDERED: TraMADol HCl 50 MG Tab PO PRN (11:15)
[2023-09-21] MEDS ORDERED: TRAM50 PO (13:27)
[2023-09-21] MEDS ORDERED: FURO20 PO (13:27)
--- NOTE | 2023-09-21 13:50 | NUR ---
DISCHARGE EVE DC'd, VOIDED x 2. PAIN CONTROLLED BUT C/O HER RLS BOTHERING HER MORE. HAS FWW AT HOME & SUPPORT FROM SPOUSE. REVIEWED IMMOBILIZER & DEMONSTRATED HOW TO USE STRAPS. RX GIVEN FROM DR ROCHA. STATES SHE HAS APPNT w/ DR OVALLE WEDNESDAY. ESCORTED OUT VIA WC.
[2023-09-21] MEDS ORDERED: Metoprolol Succinate 50 MG TABCR PO SCH (18:00)
--- NOTE | 2023-09-21 19:43 | NUR ---
PT ARRIVED TO UNIT AT APROX 1045 FROM PACU POD 1 L LOIS. PT AQUACEL DRESSING TO L ANTERIOR HIP C/D/I. PT CLEARED PT, VOIDING, PAIN WELL MANAGED WITH 25MG TRAMADOL AND SCHEDULED TORADOL. PT TOLERATING REGULAR DIET. PT WAS DISCHARGED HOME AT APROX 1545. PT WAS GIVEN WRITTEN AND VERBAL DISCHARGE INSTRUCTIONS AND VERBALIZED UNDERSTANDING OF THESE INSTRUCTIONS. IV WAS REMOVED, TOLERATED WELL. WC TO CAR.
== END 2023-09-21 15:16 | disposition home or self-care (01) ==
LOC: ER 12:56 → SURS 12:57 → ER 14:30 → SURS 19:49
PROVIDERS: Emergency Medicine; Orthopaedic Surgery; ADMIT Internal Medicine
PROC: 0SS90ZZ Reposition Right Hip Joint, Open Approach (ICD-10-PCS; principal; 2023-09-20 14:30)
DX: S73.004A Unspecified dislocation of right hip, initial encounter (principal); E78.5 Hyperlipidemia, unspecified; E03.9 Hypothyroidism, unspecified; J44.9 Chronic obstructive pulmonary disease, unspecified; I25.2 Old myocardial infarction; I25.10 Atherosclerotic heart disease of native coronary artery without angina pectoris; J18.9 Pneumonia, unspecified organism; G43.909 Migraine, unspecified, not intractable, without status migrainosus; I11.0 Hypertensive heart disease with heart failure; I50.9 Heart failure, unspecified; Z88.0 Allergy status to penicillin; Z88.8 Allergy status to other drugs, medicaments and biological substances; Z79.899 Other long term (current) drug therapy; Z87.891 Personal history of nicotine dependence; X58.XXXA Exposure to other specified factors, initial encounter
CPT/HCPCS: 0241U; 27265; 36415; 71045; 73502; 80053; 81001; 83880; 84145; 85025; 93005; 93010; 93306; 94762; 96361-59; 96374-59; 96375-59; 96376-59; 97162; 97165; 97530-CQ; 97535; 99152; 99284-25; A9270; J0330; J1170; J1650; J1940; J2405; J2704; J3010; J7030

== ENCOUNTER 2023-10-04 10:23 | Emergency (ER) | payer MEDICARE ==
[2023-10-04] VITALS (8 sets, daily range): BP systolic 97–140; BP diastolic 59–92
[~2023-10-04] VITALS: Ht 157.5 cm; Wt 54.4 kg
[~2023-10-04 10:23] MED LIST changes: +FURO20 PO; +LORZONE375 MG PO; +TRAM50 PO
[2023-10-04] MEDS ORDERED: HYDROmorphone HCl/Pf 1MG SYR IV ONE ×2 (11:15→12:35)
[2023-10-04] MEDS ORDERED: Lactated Ringer's 1,000 ML IV SCH (13:30)
--- NOTE | 2023-10-04 13:48 | NUR ---
PT BROUGHT FROM ER VIA GURNEY TO [facility] FOR RIGHT HIP CLOSED REDUCTION. Patient confirms NPO status and agrees with scheduled surgery. Pre-Op teaching done. Pt verbalizes understanding. History, Chart, Medications and Allergies reviewed before start of procedure.
[2023-10-04] MEDS ORDERED: Midazolam HCl 1MG / ML 2ML Vial ONE (13:51)
[2023-10-04] MEDS ORDERED: FentaNYL Citrate 50 MCG/ML 2 ML Injection ONE (13:51)
[2023-10-04] MEDS ORDERED: Lidocaine HCl 2% 20 ML MDV ONE (13:52)
[2023-10-04] MEDS ORDERED: propofoL 20 ML IV ONE (13:52)
[2023-10-04] MEDS ORDERED: Flumazenil 0.1 MG / ML 5ML Vial ONE (14:01)
--- NOTE | 2023-10-04 14:39 | NUR ---
PT INTO STEP. RIGHT LEG BRACE IN PLACE. PT DENIES PAIN. UP TO BRP WITH FWW. PT REQUESTED TO GET DRESSED AND WASH HER FACE. REQUEST GRANTED. PT ABLE TO AMBULATE FROM BATHROOM TO SPOT 10 IN SDS WITHOUT DIFFICULTY. PT SITTING IN RECLINER CHAIR EATING AND DRINKING-DENIES COMPLAINT AT THIS TIME.
--- NOTE | 2023-10-04 15:05 | NUR ---
REVIEWED DC INSTRUCTIONS WITH PT. PT VERBALIZES UNDERSTANDING. PT AWAITING TRANSPORTATION.
== END 2023-10-04 13:15 | disposition home or self-care (01) ==
LOC: ER 10:23
DX: T84.020A Dislocation of internal right hip prosthesis, initial encounter (principal); I10 Essential (primary) hypertension; E78.5 Hyperlipidemia, unspecified; J44.9 Chronic obstructive pulmonary disease, unspecified; E03.9 Hypothyroidism, unspecified; G43.909 Migraine, unspecified, not intractable, without status migrainosus; Z79.899 Other long term (current) drug therapy; Z88.0 Allergy status to penicillin; Z88.1 Allergy status to other antibiotic agents; Z88.8 Allergy status to other drugs, medicaments and biological substances
CPT/HCPCS: 72170; 73502; 96374-59; 96376-59; 99284-25; J1170; J2250; J2704; J3010; J7120

== ENCOUNTER → 2023-12-16 | Outpatient (CLI) | payer MEDICARE ==
[~2023-12-16] MED LIST changes: +CEPH500 PO; +ERYT.5TO BOTHEYES; +FAMC500 PO; +HYDR1TAB94 PO
[2023-12-16 10:29] LABS: Source, Urine Clean Catch
[2023-12-16 13:18] LABS: Appearance, Urine Clear (Clear); Bilirubin, Urine Neg (Neg); Blood, Urine 1+ (Neg); Color, Urine Yellow (P-Yellow); Glucose Qualitative, Urine Neg (Neg); Ketones, Urine Neg (Neg); Leukocyte Esterase, Urine Neg (Neg); Nitrite, Urine Neg (Neg); Protein, Urine Neg (Neg); Specific Gravity, Urine 1.005 (1.003-1.022); Urobilinogen, Urine NORM (Normal)
[2023-12-16 14:07] LABS: Bacteria Rare /hpf; Red Blood Cells, Urine 0-2 /hpf (0-2); Squamous Epithelial Cells Few /hpf (Few); White Blood Cells, Urine 0-2 /hpf (0-5)
== END | disposition home or self-care (01) ==
LOC: LAB 10:00 → LAB SHORT 10:00
PROVIDERS: Internal Medicine
DX: N39.0 Urinary tract infection, site not specified (principal)
CPT/HCPCS: 81001

== ENCOUNTER 2023-12-20 12:17 | Emergency (ER) | payer MEDICARE ==
[~2023-12-20] VITALS: Ht 167.6 cm; Wt 63.5 kg
[~2023-12-20 12:17] MED LIST changes: -CEPH500 PO; -ERYT.5TO BOTHEYES; -FAMC500 PO; -HYDR1TAB94 PO
[2023-12-20 13:22] VITALS: BP 174/90
[2023-12-20] MEDS ORDERED: CEPH500 PO (13:33)
[2023-12-20] MEDS ORDERED: FAMC500 PO (13:33)
[2023-12-20] MEDS ORDERED: ERYT.5TO BOTHEYES (13:33)
[2023-12-20] MEDS ORDERED: HYDR1TAB94 PO (13:33)
== END 2023-12-20 13:31 | disposition home or self-care (01) ==
LOC: ER 12:17
DX: L03.211 Cellulitis of face (principal); B96.89 Other specified bacterial agents as the cause of diseases classified elsewhere; I10 Essential (primary) hypertension; J44.9 Chronic obstructive pulmonary disease, unspecified; Z87.891 Personal history of nicotine dependence; Z88.0 Allergy status to penicillin; Z88.1 Allergy status to other antibiotic agents; Z88.8 Allergy status to other drugs, medicaments and biological substances; Z79.899 Other long term (current) drug therapy
CPT/HCPCS: 99282

== ENCOUNTER 2024-11-23 14:24 | Emergency (ER) | payer MEDICARE ==
[~2024-11-23] VITALS: Ht 154.9 cm; Wt 58.1 kg
[~2024-11-23 14:24] MED LIST changes: +CEPH500 PO; +ERYT.5TO BOTHEYES; +FAMC500 PO; +HYDR1TAB94 PO
[2024-11-23 14:42] VITALS: BP 134/96
[2024-11-23] MEDS ORDERED: Ondansetron 4 MG SoluTab SL ONE (15:25)
== END 2024-11-23 16:07 | disposition home or self-care (01) ==
LOC: ER 14:24
DX: M25.561 Pain in right knee (principal); I10 Essential (primary) hypertension; J44.9 Chronic obstructive pulmonary disease, unspecified; Z87.891 Personal history of nicotine dependence
CPT/HCPCS: 73562-RT; 99283-25; A9270